=== PATIENT | female | born 1985 | race African-American/Black ===

== ENCOUNTER 2019-03-26 20:57 | Emergency (ER) | payer MEDICAID ==
[~2019-03-26] VITALS: Ht 162.6 cm; Wt 69.0 kg
[~2019-03-26 20:57] MED LIST: albuterol
[2019-03-26] MEDS ORDERED: PREDNISONE 20MG TABLET PO STA (21:24)
[2019-03-26] MEDS ORDERED: ALBUTEROL (0.083%) 2.5MG/3ML NEB HHN STA (21:24)
[2019-03-26] MEDS ORDERED: IPRATROPIUM BROMIDE (0.02%) 0.5MG/2.5ML NEB HHN STA (21:24)
[2019-03-27] VITALS: BP 121/75
== END 2019-03-27 00:03 | disposition home or self-care (01) ==
LOC: ER 21:20
DX: J45.901 Unspecified asthma with (acute) exacerbation (principal); F17.210 Nicotine dependence, cigarettes, uncomplicated; Z71.6 Tobacco abuse counseling
CPT/HCPCS: 81025; 94644; 99285; 99406; J7512; J7611; Z7610

== ENCOUNTER 2019-04-18 00:55 | Emergency (ER) | payer MEDICAID ==
[~2019-04-18] VITALS: Ht 170.2 cm; Wt 82.0 kg
[2019-04-18] MEDS ORDERED: METHYLPREDNISOLONE SOD SUCC 125 MG/2 ML VIAL IV STA (02:44)
[2019-04-18] MEDS ORDERED: IPRATROPIUM BROMIDE (0.02%) 0.5MG/2.5ML NEB HHN STA (02:44)
[2019-04-18] MEDS ORDERED: ALBUTEROL (0.083%) 2.5MG/3ML NEB HHN STA (02:44)
[2019-04-18 05:30] VITALS: BP 121/65
== END 2019-04-18 05:30 | disposition home or self-care (01) ==
LOC: ER 00:55
DX: J45.901 Unspecified asthma with (acute) exacerbation (principal); R03.0 Elevated blood-pressure reading, without diagnosis of hypertension
CPT/HCPCS: 94640; 96374; 99283; J2930; J7611; Z7610

== ENCOUNTER 2019-07-16 03:07 | Emergency (ER) | payer MEDICAID ==
[~2019-07-16] VITALS: Ht 162.6 cm; Wt 66.0 kg
[2019-07-16] MEDS ORDERED: METHYLPREDNISOLONE SOD SUCC 125 MG/2 ML VIAL IV STA (03:49)
[2019-07-16] MEDS ORDERED: SODIUM CHLORIDE 0.9% 1,000 ML IV ONE (03:49)
[2019-07-16] MEDS ORDERED: IPRATROPIUM BROMIDE (0.02%) 0.5MG/2.5ML NEB HHN STA (03:49)
[2019-07-16] MEDS ORDERED: MAGNESIUM 2 G PREMIX 50 ML IV ONE (04:00)
[2019-07-16] MEDS: ALBUTEROL (0.083%) 2.5MG/3ML NEB HHN SCH (04:39)
[2019-07-16 07:51] VITALS: BP 113/69
== END 2019-07-16 08:12 | disposition home or self-care (01) ==
LOC: ER 03:07
DX: J45.901 Unspecified asthma with (acute) exacerbation (principal); I51.9 Heart disease, unspecified
CPT/HCPCS: 71045; 94644; 96365; 96366; 96375; 99285; J2930; J3475; J7030; J7611; Z7610

== ENCOUNTER 2019-10-10 14:18 | Inpatient (IN) | payer MEDICAID ==
[~2019-10-10] VITALS: Ht 162.6 cm; Wt 73.5 kg
[~2019-10-10 14:18] MED LIST changes: +ALBU05 IH
[2019-10-10] MEDS ORDERED: IPRATROPIUM BROMIDE (0.02%) 0.5MG/2.5ML NEB HHN STA (21:20)
[2019-10-10] MEDS ORDERED: METHYLPREDNISOLONE SOD SUCC 125 MG/2 ML VIAL IV STA (21:20)
[2019-10-10] MEDS ORDERED: ALBUTEROL (0.083%) 2.5MG/3ML NEB HHN STA (21:20)
[2019-10-10 21:56] LABS: BASOPHILS % 0.9 % (0.0-2.0); HEMOGLOBIN. 13.7 g/dL (12.0-16.0); LYMPHOCYTES % 29.6 % (20.0-50.0); MEAN CORPUSCULAR VOLUME 92.5 fL (81.0-99.0); MEAN PLATELET VOLUME 7.2 fl (7.4-10.4); NEUTROPHILS % 54.5 % (40.0-76.0); PLATELET 318 x1000/uL (130-400); RED BLOOD CELL COUNT 4.43 mill/uL (4.2-5.4); RED CELL DISTRIBUTION WIDTH 13.5 % (11.6-14.6)
[2019-10-10 22:00] LABS: CHLORIDE 106 mEq/L (98-107)
[2019-10-10 22:07] LABS: HCG SCREEN NEGATIVE
[2019-10-11] MEDS ORDERED: ALBUTEROL (0.083%) 2.5MG/3ML NEB HHN STA (00:12)
[2019-10-11] MEDS ORDERED: ALBUTEROL (0.5%) 2.5MG/0.5ML NEB HHN ONE (00:56)
[2019-10-11] MEDS ORDERED: IPRATROPIUM/ALBUTEROL 0.5-3(2.5)MG/3ML NEB ONE (00:57)
[2019-10-11] MEDS ORDERED: ASPIRIN 325MG EC TABLET PO ONE (03:00)
[2019-10-11] MEDS ORDERED: ONDANSETRON 4MG ODT PO ONE (03:15)
[2019-10-11 08:00] VITALS: BP 120/67
[2019-10-11] MEDS ORDERED: CLONIDINE 0.1MG TABLET PO PRN (08:00)
[2019-10-11] MEDS ORDERED: ONDANSETRON HCL 4MG/2ML INJ IV PRN (08:00)
[2019-10-11] MEDS ORDERED: IPRATROPIUM/ALBUTEROL 0.5-3(2.5)MG/3ML NEB HHN PRN (08:00)
[2019-10-11] MEDS ORDERED: DIPHENHYDRAMINE 50MG/ML VIAL IV PRN (08:00)
[2019-10-11 08:47] LABS: PHOSPHORUS 1.1 mg/dL (2.5-4.9)
[2019-10-11 09:17] VITALS: BP 120/67
[2019-10-11] MEDS: METHYLPREDNISOLONE SOD SUCC 125 MG/2 ML VIAL IV SCH ×3 (11:00→22:17)
[2019-10-11 12:00] VITALS: BP 124/55
[2019-10-11 16:00] VITALS: BP 120/71
[2019-10-11] MEDS: BENZONATATE 100MG CAPSULE PO SCH (16:14)
[2019-10-11] MEDS: MONTELUKAST SODIUM 10MG TABLET PO SCH (16:15)
[2019-10-11] MEDS: LORATADINE 10MG TABLET PO SCH (16:15)
[2019-10-11 16:43] LABS: CLARITY URINE CLEAR (CLEAR); COLOR URINE YELLOW (YELLOW); KETONES URINE NEGATIVE (NEGATIVE); LEUKOCYTE ESTERASE URINE NEGATIVE (NEGATIVE); NITRITE URINE NEGATIVE (NEGATIVE); OCCULT BLOOD URINE NEGATIVE (NEGATIVE); PH URINE 6.5 (4.5-8.0); PROTEIN URINE NEGATIVE (NEGATIVE); SPECIFIC GRAVITY URINE 1.012 (1.005-1.030); UROBILINOGEN URINE 0.2 E.U./dL (0.2-1.0)
[2019-10-11] MEDS ORDERED: PNEUMOCOCCAL 23-VAL P-SAC VAC 0.5 ML IM ONE (16:45)
[2019-10-11] MEDS ORDERED: INFLUENZA VIRUS VACCINE(AFLURIA) 0.5ML SYR IM ONE (16:45)
[2019-10-11 17:04] LABS: *BARBITURATES SCREEN URINE NEGATIVE (NEGATIVE); *BENZODIAZEPINES SCREEN URINE NEGATIVE (NEGATIVE); *COCAINE SCREEN URINE NEGATIVE (NEGATIVE); METHADONE URINE SCREEN NEGATIVE (NEGATIVE); OPIATES URINE SCREEN NEGATIVE (NEGATIVE)
[2019-10-11 17:05] LABS: *AMPHETAMINES SCREEN URINE NEGATIVE (NEGATIVE); CANNABINOID URINE SCREEN NEGATIVE (NEGATIVE); PHENCYCLIDINE URINE SCREEN NEGATIVE (NEGATIVE)
[2019-10-11 20:00] VITALS: BP 122/71
[2019-10-11] MEDS: FAMOTIDINE 20MG/2ML VIAL IV SCH (20:53)
[2019-10-12] VITALS: BP 103/55
[2019-10-12 04:00] VITALS: BP 99/53
[2019-10-12] MEDS: METHYLPREDNISOLONE SOD SUCC 125 MG/2 ML VIAL IV SCH ×2 (04:12→11:55)
[2019-10-12] MEDS: IPRATROPIUM/ALBUTEROL 0.5-3(2.5)MG/3ML NEB HHN SCH ×3 (04:42→13:18)
[2019-10-12 06:35] LABS: HEMATOCRIT. 39.2 % (36.0-48.0); HEMOGLOBIN. 13.1 g/dL (12.0-16.0); MEAN CORPUSCULAR HEMOGLOBIN 30.8 pg (28.0-32.0); MEAN CORPUSCULAR VOLUME 92.6 fL (81.0-99.0); MEAN PLATELET VOLUME 7.7 fl (7.4-10.4); PLATELET 317 x1000/uL (130-400); RED BLOOD CELL COUNT 4.23 mill/uL (4.2-5.4); RED CELL DISTRIBUTION WIDTH 13.5 % (11.6-14.6)
[2019-10-12 06:55] LABS: CHLORIDE 106 mEq/L (98-107)
[2019-10-12 07:05] LABS: LDL CHOLESTEROL 82 mg/dL (5-100)
[2019-10-12 07:07] LABS: HDL CHOLESTEROL 80 mg/dL (40-59)
[2019-10-12 08:00] VITALS: BP 114/68
[2019-10-12] MEDS: BENZONATATE 100MG CAPSULE PO SCH ×3 (08:07→16:15)
[2019-10-12] MEDS: LORATADINE 10MG TABLET PO SCH (08:07)
[2019-10-12] MEDS: FAMOTIDINE 20MG/2ML VIAL IV SCH (08:08)
[2019-10-12 11:41] VITALS: BP 115/61
[2019-10-12] MEDS ORDERED: MONT10TA21 PO (15:24)
[2019-10-12] MEDS ORDERED: ALBU05 IH (15:24)
[2019-10-12] MEDS ORDERED: CLAR10 PO (15:24)
[2019-10-12] MEDS ORDERED: ALBU18HF2 IH (15:24)
[2019-10-12] MEDS ORDERED: MED4 MT (15:24)
[2019-10-12] MEDS ORDERED: BENZ100C86 PO (15:24)
[2019-10-12] MEDS ORDERED: FAMO20TA8 MT (15:24)
[2019-10-12 16:00] VITALS: BP 110/70
[2019-10-12] MEDS: MONTELUKAST SODIUM 10MG TABLET PO SCH (16:15)
[2019-10-12 16:43] VITALS: BP 110/70
[2019-10-12] MEDS ORDERED: PREDNISONE 20MG TABLET PO SCH (17:00)
[2019-10-12 20:58] LABS: PLATELET ESTIMATE NORMAL
[2019-10-12] MEDS ORDERED: FAMOTIDINE 20MG TABLET PO SCH (21:00)
== END 2019-10-12 17:50 | disposition home or self-care (01) | DRG 133 ==
LOC: ER 14:29 → 5WST 10-11 03:22 → ENRESERV 10-11 07:49
PROVIDERS: ADMIT Internal Medicine; ATTEND Internal Medicine
DX: J96.00 Acute respiratory failure, unspecified whether with hypoxia or hypercapnia (principal); D72.1 Eosinophilia; J45.901 Unspecified asthma with (acute) exacerbation; Z79.899 Other long term (current) drug therapy
CPT/HCPCS: 36415; 71045; 80053; 80061; 80305; 81003; 83735; 84100; 84484; 84703; 85025; 87804; 90686; 90732; 93005; 93970; 99285; J2930; J3490; J7512; J7611; J7620; Q0162

== ENCOUNTER 2019-11-04 15:18 | Emergency (ER) | payer MEDICAID ==
[~2019-11-04] VITALS: Ht 165.1 cm; Wt 73.0 kg
[~2019-11-04 15:18] MED LIST changes: +ALBU18HF2 IH; +BENZ100C86 PO; +CLAR10 PO; +FAMO20TA8 MT; +MED4 MT; +MONT10TA21 PO; -albuterol
[2019-11-04] MEDS ORDERED: IBUPROFEN 800MG TABLET PO ONE (16:45)
[2019-11-04] MEDS ORDERED: DEXAMETHASONE 4MG TABLET PO ONE (16:45)
[2019-11-04] MEDS ORDERED: ACETAMINOPHEN 500MG TABLET PO ONE (16:45)
[2019-11-04] MEDS ORDERED: IPRATROPIUM/ALBUTEROL 0.5-3(2.5)MG/3ML NEB HHN ONE ×2 (16:45→18:45)
[2019-11-04 17:10] VITALS: BP 125/80
== END 2019-11-04 19:24 | disposition home or self-care (01) ==
LOC: ER 15:18
DX: J45.909 Unspecified asthma, uncomplicated (principal)
CPT/HCPCS: 71045; 87804; 94640; 99284; J7610; J8540; Z7610

== ENCOUNTER 2019-12-25 23:45 | Inpatient (IN) | payer MEDICAID ==
[~2019-12-25] VITALS: Ht 165.1 cm; Wt 74.8 kg
[~2019-12-25 23:45] MED LIST changes: +FLUT1DIS3 INH; +IPRA3AMP9 NEB; +LEVO500T2 MT
[2019-12-26] MEDS ORDERED: ALBUTEROL (0.083%) 2.5MG/3ML NEB HHN STA (00:06)
[2019-12-26] MEDS ORDERED: ONDANSETRON HCL 4MG/2ML INJ IV STA (00:06)
[2019-12-26] MEDS ORDERED: METHYLPREDNISOLONE SOD SUCC 125 MG/2 ML VIAL IV STA (00:06)
[2019-12-26] MEDS ORDERED: SODIUM CHLORIDE 0.9% 1,000 ML IV ONE (00:06)
[2019-12-26] MEDS ORDERED: MORPHINE SULFATE 4 MG/ML CPJ (NOT FOR IM USE) IV STA (00:06)
[2019-12-26] MEDS ORDERED: IPRATROPIUM BROMIDE (0.02%) 0.5MG/2.5ML NEB HHN STA (00:06)
[2019-12-26 00:47] LABS: CHLORIDE 107 mEq/L (98-107)
[2019-12-26 00:52] LABS: INR 0.9; PARTIAL THROMBOPLASTIN TIME 27.5 sec (23.4-31.0); PROTHROMBIN TIME 9.7 sec (9.6-11.0)
[2019-12-26 00:55] LABS: BASOPHILS % 0.4 % (0.0-2.0); EOSINOPHILS % 4.5 % (0.0-5.0); HEMATOCRIT. 36.5 % (36.0-48.0); HEMOGLOBIN. 12.6 g/dL (12.0-16.0); MEAN CORPUSCULAR HEMOGLOBIN 31.6 pg (28.0-32.0); MEAN CORPUSCULAR VOLUME 91.9 fL (81.0-99.0); MEAN PLATELET VOLUME 7.5 fl (7.4-10.4); MONOCYTES % 9.8 % (2.0-8.0); NEUTROPHILS % 42.3 % (40.0-76.0); PLATELET 285 x1000/uL (130-400); RED BLOOD CELL COUNT 3.97 mill/uL (4.2-5.4); RED CELL DISTRIBUTION WIDTH 14.1 % (11.6-14.6)
[2019-12-26 01:07] LABS: HCG SCREEN NEGATIVE
[2019-12-26] MEDS ORDERED: POTASSIUM CHLORIDE 20MEQ TABLET SR PO ONE (02:00)
[2019-12-26] MEDS ORDERED: IOHEXOL-300 100 ML BOTTLE ONE (03:25)
[2019-12-26 09:00] VITALS: BP 139/80
[2019-12-26] MEDS ORDERED: BENZONATATE 100MG CAPSULE PO PRN (09:15)
[2019-12-26] MEDS ORDERED: KETOROLAC 30MG/ML VIAL IV PRN (09:15)
[2019-12-26] MEDS ORDERED: ONDANSETRON HCL 4MG/2ML INJ IV PRN (09:15)
[2019-12-26] MEDS ORDERED: ACETAMINOPHEN 325MG TABLET PO PRN (09:15)
[2019-12-26 09:20] VITALS: BP 139/80
[2019-12-26] MEDS ORDERED: AZITHROMYCIN 500 MG in DEXT 5% WATER 250 ML IV SCH (10:30)
[2019-12-26] MEDS ORDERED: CEFTRIAXONE 1 G PREMIX 50 ML IV SCH (11:30)
== END 2019-12-26 13:35 | disposition left against medical advice (07) | DRG 203 ==
LOC: ER 23:45 → 7EST 12-26 04:39 → ENRESERV 12-26 07:41
PROVIDERS: ADMIT Internal Medicine; ATTEND Internal Medicine
DX: R07.89 Other chest pain (principal); J45.901 Unspecified asthma with (acute) exacerbation; E87.6 Hypokalemia; F12.90 Cannabis use, unspecified, uncomplicated; F17.210 Nicotine dependence, cigarettes, uncomplicated; S01.01XA Laceration without foreign body of scalp, initial encounter; V43.52XA Car driver injured in collision with other type car in traffic accident, initial encounter; Y92.410 Unspecified street and highway as the place of occurrence of the external cause; Y93.89 Activity, other specified; Y99.8 Other external cause status; Z79.2 Long term (current) use of antibiotics; Z79.899 Other long term (current) drug therapy; Z71.6 Tobacco abuse counseling; Z03.818 Encounter for observation for suspected exposure to other biological agents ruled out
CPT/HCPCS: 36415; 71045; 71260; 74177; 80053; 84703; 85025; 87420; 87635; 87804; 93005; 94644; 99285; J0456; J0696; J1885; J2270; J2405; J2930; J7030; J7060; Q9967

== ENCOUNTER 2020-01-17 21:15 | Inpatient (IN) | payer MEDICAID ==
[~2020-01-17] VITALS: Ht 165.1 cm; Wt 59.9 kg
[2020-01-17] MEDS ORDERED: ALBUTEROL (0.083%) 2.5MG/3ML NEB HHN STA (22:01)
[2020-01-17] MEDS ORDERED: IPRATROPIUM BROMIDE (0.02%) 0.5MG/2.5ML NEB HHN STA (22:01)
[2020-01-17] MEDS ORDERED: PREDNISONE 20MG TABLET PO STA (22:01)
[2020-01-18] MEDS ORDERED: ALBUTEROL (0.083%) 2.5MG/3ML NEB HHN STA (01:48)
[2020-01-18] MEDS ORDERED: MAGNESIUM 2 G PREMIX 50 ML IV ONE (02:00)
[2020-01-18 02:56] LABS: BASOPHILS % 0.5 % (0.0-2.0); HEMATOCRIT. 37.9 % (36.0-48.0); HEMOGLOBIN. 12.7 g/dL (12.0-16.0); LYMPHOCYTES % 20.4 % (20.0-50.0); MEAN CORPUSCULAR HEMOGLOBIN 30.9 pg (28.0-32.0); MEAN CORPUSCULAR VOLUME 92.1 fL (81.0-99.0); MEAN PLATELET VOLUME 7.7 fl (7.4-10.4); MONOCYTES % 5.3 % (2.0-8.0); NEUTROPHILS % 65.8 % (40.0-76.0); PLATELET 244 x1000/uL (130-400); RED BLOOD CELL COUNT 4.11 mill/uL (4.2-5.4); RED CELL DISTRIBUTION WIDTH 15.3 % (11.6-14.6)
[2020-01-18 02:59] LABS: CHLORIDE 107 mEq/L (98-107)
[2020-01-18] MEDS ORDERED: METHYLPREDNISOLONE SOD SUCC 40 MG/ML VIAL IV SCH (03:45)
[2020-01-18 03:58] LABS: HCG SCREEN NEGATIVE
[2020-01-18 11:45] VITALS: BP 125/79
[2020-01-18 12:00] VITALS: BP 125/79
[2020-01-18] MEDS ORDERED: CLONIDINE 0.1MG TABLET PO PRN (13:00)
[2020-01-18] MEDS ORDERED: IPRATROPIUM/ALBUTEROL 0.5-3(2.5)MG/3ML NEB HHN PRN (13:00)
[2020-01-18] MEDS ORDERED: ACETAMINOPHEN 325MG TABLET PO PRN (13:00)
[2020-01-18] MEDS ORDERED: ONDANSETRON HCL 4MG/2ML INJ IV PRN (13:00)
[2020-01-18] MEDS: ENOXAPARIN 40MG/0.4ML SYR SUBCUT SCH (14:54)
[2020-01-18 16:00] VITALS: BP 124/61
[2020-01-18] MEDS ORDERED: MONTELUKAST SODIUM 10MG TABLET PO SCH (17:00)
[2020-01-18 17:26] LABS: PHOSPHORUS 2.3 mg/dL (2.5-4.9)
[2020-01-18] MEDS: AZITHROMYCIN 500 MG in DEXT 5% WATER 250 ML IV SCH (17:42)
[2020-01-18 20:00] VITALS: BP 105/58
[2020-01-18] MEDS: FAMOTIDINE 20MG TABLET PO SCH (21:25)
[2020-01-18] MEDS: BUDESONIDE 0.5MG/2ML NEB HHN SCH (22:42)
[2020-01-18] MEDS: IPRATROPIUM/ALBUTEROL 0.5-3(2.5)MG/3ML NEB HHN SCH (22:42)
[2020-01-19] VITALS: BP 107/61
[2020-01-19 04:00] VITALS: BP 115/67
[2020-01-19] MEDS: IPRATROPIUM/ALBUTEROL 0.5-3(2.5)MG/3ML NEB HHN SCH ×4 (05:08→15:44)
[2020-01-19 05:57] LABS: BASOPHILS % 0.4 % (0.0-2.0); EOSINOPHILS % 3.1 % (0.0-5.0); HEMATOCRIT. 36.2 % (36.0-48.0); HEMOGLOBIN. 12.2 g/dL (12.0-16.0); LYMPHOCYTES % 38.6 % (20.0-50.0); MEAN CORPUSCULAR HEMOGLOBIN 31.3 pg (28.0-32.0); MEAN CORPUSCULAR VOLUME 92.5 fL (81.0-99.0); MEAN PLATELET VOLUME 8.1 fl (7.4-10.4); MONOCYTES % 8.5 % (2.0-8.0); NEUTROPHILS % 49.4 % (40.0-76.0); PLATELET 245 x1000/uL (130-400); RED BLOOD CELL COUNT 3.91 mill/uL (4.2-5.4); RED CELL DISTRIBUTION WIDTH 15.2 % (11.6-14.6)
[2020-01-19 06:19] LABS: CHLORIDE 108 mEq/L (98-107)
[2020-01-19 06:27] LABS: LDL CHOLESTEROL 58 mg/dL (5-100)
[2020-01-19 06:29] LABS: HDL CHOLESTEROL 82 mg/dL (40-59)
[2020-01-19 08:00] VITALS: BP 110/67
[2020-01-19] MEDS: BUDESONIDE 0.5MG/2ML NEB HHN SCH (08:48)
[2020-01-19] MEDS ORDERED: LORATADINE 10MG TABLET PO SCH (09:00)
[2020-01-19] MEDS: FAMOTIDINE 20MG TABLET PO SCH (09:17)
[2020-01-19] MEDS: ENOXAPARIN 40MG/0.4ML SYR SUBCUT SCH (09:17)
[2020-01-19 12:00] VITALS: BP 100/60
[2020-01-19] MEDS: AZITHROMYCIN 500 MG in DEXT 5% WATER 250 ML IV SCH (13:02)
[2020-01-19] MEDS ORDERED: MED4 MT (14:27)
[2020-01-19] MEDS ORDERED: AZIT500T8 MT (14:27)
[2020-01-19 14:37] VITALS: BP 100/60
== END 2020-01-19 16:16 | disposition home or self-care (01) | DRG 133 ==
LOC: ER 21:15 → 6EST 01-18 03:42 → ENRESERV 01-18 10:27
PROVIDERS: ADMIT Internal Medicine; ATTEND Internal Medicine
DX: J96.00 Acute respiratory failure, unspecified whether with hypoxia or hypercapnia (principal); J18.9 Pneumonia, unspecified organism; D72.1 Eosinophilia; J45.901 Unspecified asthma with (acute) exacerbation; Z79.2 Long term (current) use of antibiotics; Z79.899 Other long term (current) drug therapy; Z72.89 Other problems related to lifestyle
CPT/HCPCS: 36415; 71045; 80053; 80061; 83735; 83880; 84100; 84484; 84703; 85025; 93005; 93970; 99285; J0456; J1650; J2920; J3475; J7060; J7512; J7626

== ENCOUNTER 2020-03-28 04:49 | Emergency (ER) | payer MEDICAID ==
[~2020-03-28] VITALS: Ht 165.1 cm; Wt 79.4 kg
[~2020-03-28 04:49] MED LIST changes: +AZIT500T8 MT
[2020-03-28 04:59] VITALS: BP 150/62
[2020-03-28] MEDS ORDERED: ALBUTEROL (0.083%) 2.5MG/3ML NEB HHN STA (05:02)
[2020-03-28] MEDS ORDERED: IPRATROPIUM BROMIDE (0.02%) 0.5MG/2.5ML NEB HHN STA (05:02)
[2020-03-28] MEDS ORDERED: PREDNISONE 20MG TABLET PO STA (05:02)
== END 2020-03-28 07:22 | disposition home or self-care (01) ==
LOC: ER 04:49
DX: J45.901 Unspecified asthma with (acute) exacerbation (principal); Z79.899 Other long term (current) drug therapy
CPT/HCPCS: 71045; 94644; 99285; J7512; Z7610

== ENCOUNTER 2020-04-12 21:10 | Emergency (ER) | payer MEDICAID ==
[~2020-04-12] VITALS: Ht 165.1 cm; Wt 78.0 kg
[2020-04-12] MEDS ORDERED: ALBUTEROL (0.083%) 2.5MG/3ML NEB HHN ONE (22:45)
[2020-04-13] MEDS ORDERED: PREDNISONE 20MG TABLET PO ONE
[2020-04-13] MEDS ORDERED: ALBUTEROL (0.083%) 2.5MG/3ML NEB HHN ONE
[2020-04-13 01:23] VITALS: BP 143/82
[2020-06-02] MEDS ORDERED: ALBU18HF2 IH (09:13)
[2020-06-04] MEDS ORDERED: IPRA3AMP9 HHN (11:40)
[2020-06-04] MEDS ORDERED: FLUT1AER4 INH (11:40)
[2020-06-04] MEDS ORDERED: MED4 MT (11:40)
== END 2020-04-13 01:24 | disposition home or self-care (01) ==
LOC: ER 21:10
DX: J45.901 Unspecified asthma with (acute) exacerbation (principal); F12.10 Cannabis abuse, uncomplicated; F17.210 Nicotine dependence, cigarettes, uncomplicated; Z71.6 Tobacco abuse counseling
CPT/HCPCS: 94640; 99284; 99406; J7512; Z7610

== ENCOUNTER 2020-04-29 16:32 | Inpatient (IN) | payer MEDICAID ==
[~2020-04-29] VITALS: Ht 165.1 cm; Wt 67.3 kg
[2020-04-29] MEDS ORDERED: ALBUTEROL 6.7GM HFA INHALER ORI ONE (18:00)
[2020-04-29] MEDS ORDERED: PREDNISONE 20MG TABLET PO ONE (18:00)
[2020-04-29 18:18] LABS: CLARITY URINE CLEAR (CLEAR); COLOR URINE DARK YELLOW (YELLOW); KETONES URINE 1+ (NEGATIVE); LEUKOCYTE ESTERASE URINE NEGATIVE (NEGATIVE); NITRITE URINE NEGATIVE (NEGATIVE); OCCULT BLOOD URINE 1+ (NEGATIVE); PROTEIN URINE TRACE (NEGATIVE); SPECIFIC GRAVITY URINE 1.042 (1.005-1.030)
[2020-04-29] MEDS ORDERED: IPRATROPIUM BROMIDE (0.02%) 0.5MG/2.5ML NEB HHN STA (20:09)
[2020-04-29] MEDS ORDERED: ALBUTEROL (0.083%) 2.5MG/3ML NEB HHN STA (20:09)
[2020-04-29] MEDS ORDERED: MAGNESIUM 2 G PREMIX 50 ML IV STA (21:33)
[2020-04-30 00:09] LABS: BASOPHILS % 0.2 % (0.0-2.0); EOSINOPHILS % 0.2 % (0.0-5.0); HEMATOCRIT. 40.3 % (36.0-48.0); HEMOGLOBIN. 13.5 g/dL (12.0-16.0); LYMPHOCYTES % 9.7 % (20.0-50.0); MEAN CORPUSCULAR HEMOGLOBIN 31.2 pg (28.0-32.0); MEAN CORPUSCULAR VOLUME 93.1 fL (81.0-99.0); MEAN PLATELET VOLUME 7.5 fl (7.4-10.4); MONOCYTES % 1.7 % (2.0-8.0); NEUTROPHILS % 88.2 % (40.0-76.0); PLATELET 232 x1000/uL (130-400); RED BLOOD CELL COUNT 4.32 mill/uL (4.2-5.4); RED CELL DISTRIBUTION WIDTH 14.2 % (11.6-14.6)
[2020-04-30 00:18] LABS: CHLORIDE 105 mEq/L (98-107)
[2020-04-30 00:22] LABS: ETHANOL BLOOD < 10 mg/dL
[2020-04-30 01:30] VITALS: BP 103/65
[2020-04-30] MEDS ORDERED: NON FORMULARY PATIENT HOME MED XX SCH (01:30)
[2020-04-30] MEDS ORDERED: LEVOFLOXACIN 500MG PREMIX 100 ML IV SCH (02:00)
[2020-04-30] MEDS: METHYLPREDNISOLONE SOD SUCC 40 MG/ML VIAL IV SCH ×3 (02:40→17:47)
[2020-04-30 04:00] VITALS: BP 114/63
[2020-04-30 07:52] VITALS: BP 114/63
[2020-04-30] MEDS: FAMOTIDINE 20MG TABLET PO SCH ×2 (08:10→20:37)
[2020-04-30] MEDS: BUDESONIDE 0.5MG/2ML NEB HHN SCH ×2 (08:13→20:51)
[2020-04-30] MEDS: ALBUTEROL (0.083%) 2.5MG/3ML NEB HHN SCH ×3 (08:13→20:51)
[2020-04-30 12:00] VITALS: BP 116/56
[2020-04-30] MEDS: ENOXAPARIN 40MG/0.4ML SYR SUBCUT SCH (14:38)
[2020-04-30] MEDS: MONTELUKAST SODIUM 10MG TABLET PO SCH (17:47)
[2020-04-30 20:00] VITALS: BP 118/59
[2020-05-01] VITALS: BP 107/53
[2020-05-01] MEDS: METHYLPREDNISOLONE SOD SUCC 40 MG/ML VIAL IV SCH ×3 (02:08→17:11)
[2020-05-01] MEDS: ALBUTEROL (0.083%) 2.5MG/3ML NEB HHN SCH ×3 (02:55→14:54)
[2020-05-01 04:00] VITALS: BP 126/71
[2020-05-01] MEDS: FAMOTIDINE 20MG TABLET PO SCH (08:19)
[2020-05-01 08:22] VITALS: BP 92/62
[2020-05-01] MEDS: BUDESONIDE 0.5MG/2ML NEB HHN SCH ×2 (10:07→14:54)
[2020-05-01 12:00] VITALS: BP 108/69
[2020-05-01] MEDS: ENOXAPARIN 40MG/0.4ML SYR SUBCUT SCH (14:12)
[2020-05-01 16:58] VITALS: BP 119/63
[2020-05-01] MEDS: MONTELUKAST SODIUM 10MG TABLET PO SCH (17:11)
[2020-05-01 17:14] VITALS: BP 119/63
== END 2020-05-01 18:30 | disposition home or self-care (01) | DRG 141 ==
LOC: ER 16:57 → 8WST 21:52 → EDBEDREQ 22:04 → EDBEDREQTM 22:04 → ENRESERV 23:12
PROVIDERS: ADMIT Internal Medicine; ATTEND Internal Medicine
DX: J45.901 Unspecified asthma with (acute) exacerbation (principal); E66.9 Obesity, unspecified; Z71.3 Dietary counseling and surveillance; Z68.24 Body mass index [BMI] 24.0-24.9, adult
CPT/HCPCS: 36415; 71045; 80053; 80320; 81003; 83880; 85025; 94640; 94644; 99285; J1650; J1956; J2920; J3475; J7512; J7626; G0480

== ENCOUNTER 2020-10-04 10:22 | Emergency (ER) | payer MEDICAID ==
[~2020-10-04] VITALS: Ht 162.6 cm; Wt 76.0 kg
[~2020-10-04 10:22] MED LIST changes: -ALBU05 IH; -AZIT500T8 MT; -BENZ100C86 PO; -CLAR10 PO; -FAMO20TA8 MT; +FLUT1AER4 INH; -FLUT1DIS3 INH; +IPRA3AMP9 HHN; -IPRA3AMP9 NEB; -LEVO500T2 MT; -MONT10TA21 PO
[2020-10-04] MEDS ORDERED: PREDNISONE 20MG TABLET PO STA (10:49)
[2020-10-04] MEDS ORDERED: IPRATROPIUM BROMIDE (0.02%) 0.5MG/2.5ML NEB HHN STA (10:49)
[2020-10-04] MEDS ORDERED: ALBUTEROL (0.083%) 2.5MG/3ML NEB HHN STA (10:49)
[2020-10-04] MEDS ORDERED: ALBUTEROL (0.083%) 2.5MG/3ML NEB HHN ONE (12:30)
[2020-10-04 13:52] VITALS: BP 142/89
== END 2020-10-04 13:53 | disposition home or self-care (01) ==
LOC: ER 10:22
DX: J45.901 Unspecified asthma with (acute) exacerbation (principal); Z91.018 Allergy to other foods; Z79.899 Other long term (current) drug therapy
CPT/HCPCS: 94640; 94644; 99285; J7512; Z7610

== ENCOUNTER 2021-01-31 10:39 | Emergency (ER) | payer MEDICAID ==
[~2021-01-31] VITALS: Ht 172.7 cm; Wt 82.0 kg
[~2021-01-31 10:39] MED LIST changes: +ALBU90AE INH
[2021-01-31] MEDS ORDERED: IPRATROPIUM/ALBUTEROL 0.5-3(2.5)MG/3ML NEB HHN ONE ×2 (11:30→15:15)
[2021-01-31 11:42] LABS: BASOPHILS % 0.8 % (0.0-2.0); EOSINOPHILS % 2.6 % (0.0-5.0); HEMATOCRIT. 37.9 % (36.0-48.0); LYMPHOCYTES % 42.2 % (20.0-50.0); MEAN CORPUSCULAR HEMOGLOBIN 32.3 pg (28.0-32.0); MEAN CORPUSCULAR VOLUME 94.2 fL (81.0-99.0); MEAN PLATELET VOLUME 7.5 fl (7.4-10.4); MONOCYTES % 8.2 % (2.0-8.0); NEUTROPHILS % 46.2 % (40.0-76.0); PLATELET 285 x1000/uL (130-400); RED BLOOD CELL COUNT 4.03 mill/uL (4.2-5.4); RED CELL DISTRIBUTION WIDTH 14.5 % (11.6-14.6)
[2021-01-31 12:03] LABS: CLARITY URINE CLOUDY (CLEAR); COLOR URINE YELLOW (YELLOW); KETONES URINE NEGATIVE (NEGATIVE); LEUKOCYTE ESTERASE URINE NEGATIVE (NEGATIVE); NITRITE URINE NEGATIVE (NEGATIVE); OCCULT BLOOD URINE 2+ (NEGATIVE); PH URINE 5.5 (4.5-8.0); PROTEIN URINE NEGATIVE (NEGATIVE); SPECIFIC GRAVITY URINE 1.019 (1.005-1.030); UROBILINOGEN URINE 0.2 E.U./dL (0.2-1.0)
[2021-01-31 12:09] LABS: CHLORIDE 105 mEq/L (98-107)
[2021-01-31 12:25] LABS: *BARBITURATES SCREEN URINE NEGATIVE (NEGATIVE); *BENZODIAZEPINES SCREEN URINE NEGATIVE (NEGATIVE); METHADONE URINE SCREEN NEGATIVE (NEGATIVE); OPIATES URINE SCREEN NEGATIVE (NEGATIVE); PHENCYCLIDINE URINE SCREEN NEGATIVE (NEGATIVE)
[2021-01-31 12:26] LABS: CANNABINOID URINE SCREEN NEGATIVE (NEGATIVE)
[2021-01-31 13:06] LABS: *AMPHETAMINES SCREEN URINE PRESUMTIVE POSITIVE (NEGATIVE); *COCAINE SCREEN URINE PRESUMTIVE POSITIVE (NEGATIVE)
[2021-01-31 16:00] VITALS: BP 139/91
[2021-01-31] MEDS ORDERED: ALBU05 NEB (16:06)
[2021-01-31] MEDS ORDERED: ALBU18HF2 IH (16:10)
[2021-02-08] MEDS ORDERED: MED4 MT (14:57)
[2021-02-08] MEDS ORDERED: MONT10TA32 MT (14:57)
== END 2021-01-31 16:56 | disposition home or self-care (01) ==
LOC: ER 10:39
DX: J45.901 Unspecified asthma with (acute) exacerbation (principal); E87.6 Hypokalemia; E16.2 Hypoglycemia, unspecified; R31.9 Hematuria, unspecified; R82.71 Bacteriuria; F15.10 Other stimulant abuse, uncomplicated; F14.10 Cocaine abuse, uncomplicated; N17.0 Acute kidney failure with tubular necrosis; F41.9 Anxiety disorder, unspecified; K21.9 Gastro-esophageal reflux disease without esophagitis; Z91.14 Patient's other noncompliance with medication regimen; Z87.440 Personal history of urinary (tract) infections; Z91.018 Allergy to other foods; Z79.899 Other long term (current) drug therapy
CPT/HCPCS: 36415; 71045; 80048; 80305; 81003; 81025; 85025; 94640; 99284; Z7610

== ENCOUNTER 2021-04-30 06:53 | Emergency (ER) | payer MEDICAID ==
[~2021-04-30] VITALS: Ht 172.7 cm; Wt 60.0 kg
[~2021-04-30 06:53] MED LIST changes: +ALBU05 NEB; +MONT10TA32 MT
[2021-04-30] MEDS ORDERED: IPRATROPIUM BROMIDE (0.02%) 0.5MG/2.5ML NEB HHN STA (07:03)
[2021-04-30] MEDS ORDERED: ALBUTEROL (0.083%) 2.5MG/3ML NEB HHN STA (07:03)
[2021-04-30] MEDS ORDERED: MAGNESIUM 2 G PREMIX 50 ML IV STA (07:03)
[2021-04-30] MEDS ORDERED: METHYLPREDNISOLONE SOD SUCC 125 MG/2 ML VIAL IV STA (07:03)
[2021-04-30] MEDS ORDERED: ALBU6.7H9 INH (09:32)
[2021-04-30] MEDS ORDERED: P50 PO (09:32)
[2021-04-30 10:59] VITALS: BP 125/73
== END 2021-04-30 11:02 | disposition home or self-care (01) ==
LOC: ER 06:53
DX: J45.909 Unspecified asthma, uncomplicated (principal); Z79.899 Other long term (current) drug therapy
CPT/HCPCS: 71045; 93005; 94644; 96365; 96375; 99285; J2930; J3475; Z7610

== ENCOUNTER 2021-10-11 21:50 | Emergency (ER) | payer MEDICAID ==
[~2021-10-11] VITALS: Ht 167.6 cm; Wt 73.0 kg
[~2021-10-11 21:50] MED LIST changes: +ALBU6.7H9 INH; +P50 PO
[2021-10-11] MEDS ORDERED: PREDNISONE 20MG TABLET PO STA (22:22)
[2021-10-11] MEDS ORDERED: ALBUTEROL (0.083%) 2.5MG/3ML NEB HHN STA (22:22)
[2021-10-12] MEDS ORDERED: ALBUTEROL 6.7GM HFA INHALER ORI ONE
[2021-10-12] MEDS ORDERED: P50 MT (00:47)
[2021-10-12] MEDS ORDERED: ALBU6.7H9 INH (00:48)
[2021-10-12] MEDS ORDERED: ALBU2.5V13 NEB (01:57)
[2021-10-12 02:11] VITALS: BP 135/88
== END 2021-10-12 02:12 | disposition home or self-care (01) ==
LOC: ER 21:50
DX: J45.901 Unspecified asthma with (acute) exacerbation (principal); B34.8 Other viral infections of unspecified site; Z20.822 Contact with and (suspected) exposure to COVID-19; Z79.899 Other long term (current) drug therapy
CPT/HCPCS: 71045; 87426; 94644; 99285; J7512; Z7610

== ENCOUNTER 2022-01-10 23:11 | Emergency (ER) | payer MEDICAID ==
[~2022-01-10] VITALS: Ht 170.2 cm; Wt 82.0 kg
[~2022-01-10 23:11] MED LIST changes: +ALBU2.5V13 NEB; +P50 MT
[2022-01-10] MEDS ORDERED: IPRATROPIUM BROMIDE (0.02%) 0.5MG/2.5ML NEB HHN STA (23:44)
[2022-01-10] MEDS ORDERED: METHYLPREDNISOLONE SOD SUCC 125 MG/2 ML VIAL IV STA (23:44)
[2022-01-10] MEDS ORDERED: MAGNESIUM 2 G PREMIX 50 ML IV ONE (23:45)
[2022-01-10 23:57] LABS: BASOPHILS % 0.9 % (0.0-2.0); EOSINOPHILS % 4.4 % (0.0-5.0); HEMATOCRIT. 38.3 % (36.0-48.0); HEMOGLOBIN. 12.9 g/dL (12.0-16.0); LYMPHOCYTES % 36.7 % (20.0-50.0); MEAN CORPUSCULAR HEMOGLOBIN 31.1 pg (28.0-32.0); MEAN CORPUSCULAR VOLUME 92.4 fL (81.0-99.0); MEAN PLATELET VOLUME 7.9 fl (7.4-10.4); MONOCYTES % 9.7 % (2.0-8.0); NEUTROPHILS % 48.3 % (40.0-76.0); PLATELET 246 x1000/uL (130-400); RED BLOOD CELL COUNT 4.15 mill/uL (4.2-5.4); RED CELL DISTRIBUTION WIDTH 14.6 % (11.6-14.6)
[2022-01-11 00:07] LABS: CHLORIDE 105 mEq/L (98-107)
[2022-01-11] MEDS: ALBUTEROL (0.083%) 2.5MG/3ML NEB HHN SCH ×2 (00:10→00:51)
[2022-01-11] MEDS ORDERED: ALBU05 NEB (03:00)
[2022-01-11] MEDS ORDERED: P50 MT (03:00)
[2022-01-11 03:30] VITALS: BP 128/89
== END 2022-01-11 04:00 | disposition home or self-care (01) ==
LOC: ER 23:11
DX: R06.2 Wheezing (principal); R06.02 Shortness of breath; Z79.899 Other long term (current) drug therapy
CPT/HCPCS: 36415; 71045; 80053; 83880; 84484; 85025; 93005; 94640; 96365; 96366; 96375; 99285; J2930; J3475; Z7610

== ENCOUNTER 2022-06-19 03:09 | Emergency (ER) | payer MEDICAID ==
[~2022-06-19] VITALS: Ht 170.2 cm; Wt 81.0 kg
[~2022-06-19 03:09] MED LIST changes: +MONT-39 MT; -MONT10TA32 MT
[2022-06-19 03:15] VITALS: BP 136/88
[2022-06-19] MEDS ORDERED: IPRATROPIUM BROMIDE (0.02%) 0.5MG/2.5ML NEB HHN STA (03:32)
[2022-06-19] MEDS ORDERED: ALBUTEROL (0.083%) 2.5MG/3ML NEB HHN STA (03:32)
[2022-06-19] MEDS ORDERED: PREDNISONE 20MG TABLET PO STA (03:32)
[2022-06-19] MEDS ORDERED: P50 MT (06:17)
[2022-06-19] MEDS ORDERED: ALBU6.7H15 INH (06:17)
== END 2022-06-19 06:37 | disposition home or self-care (01) ==
LOC: ER 03:16
DX: J45.901 Unspecified asthma with (acute) exacerbation (principal); Z79.899 Other long term (current) drug therapy
CPT/HCPCS: 94640; 94664; 99283; J7512; Z7610